=== PATIENT | female | born 1995 | race Caucasian/White ===

== ENCOUNTER 2017-01-21 06:16 | Emergency (ER) | payer OTHER ==
[~2017-01-21] VITALS: Ht 165.1 cm; Wt 70.3 kg
[2017-01-21] MEDS ORDERED: NS 1,000 ML IV ONE ×2 (06:45→07:15)
[2017-01-21] MEDS ORDERED: diphenhydrAMINE INJ 50MG/ML VIAL (J1200) IV STA (07:05)
[2017-01-21] MEDS ORDERED: METOCLOPRAMIDE INJ 10MG/2ML VIAL (J2765) IV ONE (07:15)
[2017-01-21 08:09] VITALS: BP 116/67
== END 2017-01-21 08:13 | disposition home or self-care (01) ==
LOC: EDBD 06:16 → M ED 07:29
DX: O99.89 Other specified diseases and conditions complicating pregnancy, childbirth and the puerperium (principal); G43.909 Migraine, unspecified, not intractable, without status migrainosus
CPT/HCPCS: 96361; 96374; 96375; 99283; J1200; J2765